=== PATIENT | male | born 1965 | race Caucasian/White ===

== ENCOUNTER 2016-10-24 19:48 | Inpatient (IN) | payer BC ==
[~2016-10-24] VITALS: Ht 185.4 cm; Wt 92.3 kg
[2016-10-24 20:10] LABS: EOSINOPHIL (%) 1.7 % (0-5); EOSINOPHIL COUNT 0.2 K/uL (0-0.3); HEMATOCRIT 49.9 % (38.0-50.0); IMMATURE GRANULOCYTE (%) 0.3 % (0.0-0.7); IMMATURE GRANULOCYTE COUNT 0.3 K/uL; LYMPHOCYTE COUNT 4.1 K/uL (1.0-2.8); MCH 31.5 PG (29.0-34.0); MCHC 36.3 G/DL (30.0-36.0); MCV 86.8 FL (86-99); MEAN PLAT.VOLUME 9.2 uM^3 (9.0-12.4); MONOCYTE (%) 6.5 % (3-12); MONOCYTE COUNT 0.8 K/uL (0-0.8); NEUTROPHIL (%) 55.6 % (45-76); NEUTROPHIL COUNT 6.4 K/uL (1.8-6.4); PLATELET COUNT 219 K/uL (156-360); RBC DIS.WIDTH-CV 13.5 % (11.8-14.6); RBC DIS.WIDTH-SD 42.4 % (39-53); RED BLOOD COUNT 5.75 M/uL (4.00-5.50); WHITE BLOOD COUNT 11.5 K/uL (4.1-10.2)
[2016-10-24] MEDS ORDERED: METFORMIN HCL1000 MG PO (20:20)
[2016-10-24] MEDS ORDERED: GLIMEPIRIDE2 MG PO (20:20)
[2016-10-24 20:21] LABS: AMYLASE 48 IU/L (1-118); CHLORIDE 101 mEq/L (99-109); POTASSIUM 4.6 mEq/L (3.7-5.4); SODIUM 137 mEq/L (136-147)
[2016-10-24] MEDS ORDERED: GLIMEPIRIDE4 MG PO (20:21)
[2016-10-24] MEDS ORDERED: JANUVIA100 MG PO (20:21)
[2016-10-24] MEDS ORDERED: LANTUS 3 M100 UNITS1 SC (20:22)
[2016-10-24] MEDS ORDERED: SIMVASTATIN20 MG PO (20:22)
[2016-10-24] MEDS ORDERED: INVOKANA300 MG PO (20:22)
[2016-10-24 20:23] LABS: GLUCOSE 361 mg/dL (70-99)
[2016-10-24] MEDS ORDERED: CHILD ASPIRIN81 M1 PO (20:23)
[2016-10-24 20:24] LABS: ANION GAP 13 MEQ/L (2-14)
[2016-10-24 20:26] LABS: SERUM ETHYL ALCOHOL < 10 mg/dL
[2016-10-24 20:27] LABS: GFR ESTIMATE (CALCULATED) > 59 mL/min/; INTER. NORMALIZED RATIO 0.9; PROTHROMBIN TIME 9.6 (9.2-11.2); PTT 24.2 (25-32)
[2016-10-24 20:28] LABS: UREA NITROGEN (BUN) 18 mg/dL (9-23)
[2016-10-24 20:30] LABS: LIPASE 47 U/L (1.0-51.0)
[2016-10-24 20:34] LABS: TROP-I INTERPRETATION NEGATIVE; TROPONIN-I 0.02 ng/mL (0.0-0.30)
[2016-10-24 21:42] VITALS: BP 117/67
[2016-10-24 21:45] VITALS: BP 114/68
[2016-10-24 22:00] VITALS: BP 117/74
[2016-10-24 22:15] VITALS: BP 122/65
[2016-10-24 22:30] VITALS: BP 135/79
[2016-10-24 23:00] VITALS: BP 135/79
[2016-10-24 23:28] LABS: METH RESISTANT S AUREUS PCR NEGATIVE (NEGATIVE)
[2016-10-24 23:37] LABS: PROBE CHECK PASS; SPECIMEN PROCESSING CONTROL PASS
[2016-10-25] VITALS (8 sets, daily range): BP systolic 116–143; BP diastolic 65–96
[2016-10-25 00:59] LABS: TROP-I INTERPRETATION POSITIVE
[2016-10-25 01:01] LABS: CREATINE KINASE 725 IU/L (1-294); TOTAL CK 725 IU/L (1-294)
[2016-10-25 01:03] LABS: TROPONIN-I 10.41 ng/mL (0.0-0.30)
[2016-10-25 01:09] LABS: CK-MB 60.1 ng/mL (0.0-4.9)
[2016-10-25 05:47] LABS: EOSINOPHIL (%) 1.1 % (0-5); EOSINOPHIL COUNT 0.1 K/uL (0-0.3); HEMATOCRIT 47.9 % (38.0-50.0); IMMATURE GRANULOCYTE (%) 0.2 % (0.0-0.7); LYMPHOCYTE COUNT 3.4 K/uL (1.0-2.8); MCH 31.2 PG (29.0-34.0); MCHC 35.1 G/DL (30.0-36.0); MCV 88.9 FL (86-99); MEAN PLAT.VOLUME 9.7 uM^3 (9.0-12.4); MONOCYTE (%) 6.2 % (3-12); MONOCYTE COUNT 0.8 K/uL (0-0.8); NEUTROPHIL (%) 65.6 % (45-76); NEUTROPHIL COUNT 8.4 K/uL (1.8-6.4); PLATELET COUNT 172 K/uL (156-360); RBC DIS.WIDTH-CV 13.5 % (11.8-14.6); RBC DIS.WIDTH-SD 43.3 % (39-53); RED BLOOD COUNT 5.39 M/uL (4.00-5.50); WHITE BLOOD COUNT 12.8 K/uL (4.1-10.2)
[2016-10-25 05:54] LABS: POINT-OF-CARE METER ID UU13113748
[2016-10-25 06:13] LABS: ANION GAP 8 MEQ/L (2-14); CHLORIDE 104 MEQ/L (99-109); CREATINE KINASE 689 IU/L (1-294); GFR ESTIMATE (CALCULATED) > 59 mL/min/; HDL CHOLESTEROL 36 MG/DL (Desirable>=40); LDL CHOLESTEROL 70 mg/dL (Desirable<100); NON-HDL CHOLESTEROL 122 mg/dL (Desirable<160); POTASSIUM 3.8 MEQ/L (3.7-5.4); SAMPLE HEMOLYSIS CHECK 0; SAMPLE ICTERIC CHECK 0; SAMPLE LIPEMIA CHECK 0; SODIUM 136 MEQ/L (136-147); TOTAL CHOLESTEROL 158 mg/dL (Desirable<200); TOTAL CK 689 IU/L (1-294); TRIGLYCERIDES 260 MG/DL (Normal: <150); UREA NITROGEN (BUN) 16 mg/dL (9-23)
[2016-10-25 06:15] LABS: GLUCOSE 129 mg/dL (70-99)
[2016-10-25 07:08] LABS: TROP-I INTERPRETATION POSITIVE
[2016-10-25 07:11] LABS: TROPONIN-I 16.87 ng/mL (0.0-0.30)
[2016-10-25 07:38] LABS: CK-MB 64.2 ng/mL (0.0-4.9)
[2016-10-25 07:45] LABS: Estimated Average Glucose 212 mg/dL (70-123)
[2016-10-25] MEDS ORDERED: LO-DOSE ASPIRIN81 M1 PO (09:43)
[2016-10-25] MEDS ORDERED: ACTOS15 MG PO (09:44)
[2016-10-25] MEDS ORDERED: VENTOLIN HFA18 GM IH (09:44)
[2016-10-25] MEDS ORDERED: VITAMIN D33000 UNIT PO (09:47)
[2016-10-25] MEDS ORDERED: BRILINTA90 MG PO (10:44)
[2016-10-25] MEDS ORDERED: ATORVASTATIN CA80 MG PO (10:44)
[2016-10-25] MEDS ORDERED: METOPROLOL SUCC25 MG PO (10:44)
[2016-10-25] MEDS ORDERED: NICOTINE PATCH1 EAC1 TD (10:47)
== END 2016-10-25 13:54 | disposition home or self-care (01) | DRG 247 ==
LOC: EME 19:48 → CATH 20:37 → EME 20:37 → 4WEST 21:32
PROVIDERS: Emergency Medicine; Internal Medicine Cardiovascular Disease
DX: I21.19 ST elevation (STEMI) myocardial infarction involving other coronary artery of inferior wall (principal); E11.9 Type 2 diabetes mellitus without complications; I10 Essential (primary) hypertension; E78.5 Hyperlipidemia, unspecified; F17.210 Nicotine dependence, cigarettes, uncomplicated; Z79.4 Long term (current) use of insulin
CPT/HCPCS: 80048; 80061; 81003; 82150; 82550; 82550 91; 82553; 82948; 83036; 83690; 84484; 85025; 85347; 85610; 85730; 86850; 86900; 86901; 87641; 93005; 93306; 99281; 99285; C1725; C1769; C1874; C1887; G0480; J0461; J1644; J1815; J2250; J2405; J3010; J7050